=== PATIENT | female | born 1990 | race Caucasian/White ===

== ENCOUNTER 2017-02-02 12:59 | Emergency (ER) | payer SELFPAY ==
[~2017-02-02] VITALS: Ht 172.7 cm; Wt 80.3 kg
[2017-02-02] MEDS ORDERED: LIDALL 4%-1% P1 EACH TP (15:31)
[2017-02-02] MEDS ORDERED: MEDROL DOSEPAK4 MG PO (15:31)
[2017-02-02] MEDS ORDERED: NAPROXEN500 MG PO (15:31)
[2017-02-02 15:52] VITALS: BP 117/69
[2017-02-02] MEDS ORDERED: LIDODERM 5% P1 PATCH TD (16:08)
== END 2017-02-02 16:39 | disposition home or self-care (01) ==
LOC: EME 12:59
DX: M54.42 Lumbago with sciatica, left side (principal); V00.121A Fall from non-in-line roller-skates, initial encounter; Y93.51 Activity, roller skating (inline) and skateboarding
CPT/HCPCS: 72100; 99281; 99283; J1885; J3010; J7512